=== PATIENT | male | born 1970 | race Caucasian/White ===

== ENCOUNTER 2019-07-19 12:02 | Outpatient (CLI) | payer OTHER ==
--- NOTE | 2019-07-19 13:28 | ULT ---
US Renal Bilateral STANDARD HISTORY: Irregularly shaped kidney noted on [facility] ultrasound. COMPARISON: None. FINDINGS: Real-time imaging of the right and left kidneys were performed. The right kidney measures 1 1 cm, the left kidney 10.9 cm. There are no signs of cyst, mass or obstruction. The bladder region appears unremarkable. IMPRESSION: Unremarkable renal ultrasound.
--- NOTE | 2019-07-19 13:52 | ULT ---
US Thyroid STANDARD HISTORY: Thyroid nodule COMPARISON: None. FINDINGS: Real-time imaging of the right and left lobes of the thyroid gland were performed. The righ t lobe measures 1.3 x 2.1 x 5 cm. The left lobe measures 1.2 x 1.3 x 4.7 cm. A complex cystic nodule measuring 6 mm in size it is located in the midpole region of the right lobe of the thyroid. No calcifications associated with this. Margins are slightly ill-defined. The lesion is wider than tall. IMPRESSION: TI-RADS category 3 right lobe nodule. Given its small size no further workup is suggested . Recommendation is for follow-up at greater than 1.5 cm.
== END 2019-07-19 12:03 | disposition home or self-care (01) ==
LOC: BICULT 12:02
PROVIDERS: ATTEND Family Medicine
DX: E04.1 Nontoxic single thyroid nodule (principal); N26.9 Renal sclerosis, unspecified
CPT/HCPCS: 76536; 76770

== ENCOUNTER 2019-11-28 07:18 | Outpatient (CLI) | payer OTHER ==
[2019-11-28 10:16] LABS: #Basophils 0.1 thou/uL (0.0-0.2); #Eosinphils 0.2 thou/uL (0.0-0.7); #Lymphocytes 1.5 thou/uL (1.20-3.40); #Monocytes 0.5 thou/uL (0.11-0.59); #Neutrophils 2.8 thou/uL (1.40-6.50); %Basophils 1.2 % (0.0-1.0); %Eosinophils 4.4 % (0.0-10.0); %Lymphocytes 29.7 % (21.0-51.0); %Monocytes 9.7 % (0.0-10.0); %Neutrophils 54.9 % (42.0-75.0); Hemoglobin 14.3 g/dL (14.0-18.0); Mean Corpuscular Hemoglobin 31.8 pg (27.0-31.0); Mean Corpuscular Volume 93.6 fL (78.0-98.0); Mean Platelet Volume 7.6 fL (7.4-10.4); Platelet Count 189 thou/uL (130-400); RBC Distribution Width 11.3 % (11.5-14.5); Red Blood Cell (RBC) Count 4.51 mill/uL (4.70-6.10); White Blood Cell (WBC) Count 5.1 thou/uL (4.8-10.8)
== END 2019-11-28 07:19 | disposition home or self-care (01) ==
LOC: LABBT 07:18
PROVIDERS: ATTEND Orthopaedic Surgery Hand Surgery
DX: Z01.812 Encounter for preprocedural laboratory examination (principal); G56.02 Carpal tunnel syndrome, left upper limb; M65.4 Radial styloid tenosynovitis [de Quervain]; G56.12 Other lesions of median nerve, left upper limb
CPT/HCPCS: 85025

== ENCOUNTER 2019-11-29 06:35 | Day surgery (SDC) | payer OTHER ==
[2019-11-28 08:50] VITALS: BMI 32.8
[2019-11-29] MEDS ORDERED: Midazolam HCl 2 mg/2 ml Vial ONE (08:19)
[2019-11-29] MEDS ORDERED: Fentanyl 100 MCG/2 ML VIAL ONE ×2 (08:19→11:12)
[2019-11-29] MEDS ORDERED: Bupivacaine PF 0.5% 30 ML VIAL ONE (08:22)
[2019-11-29] MEDS ORDERED: Betamet Acet/Betamet Na Ph 30 MG/5 ML VIAL ONE ×2 (08:22→09:08)
[2019-11-29] MEDS ORDERED: Bacitracin Zinc Ointment 30 gm TUBE ONE (08:22)
[2019-11-29] MEDS ORDERED: PROPOFOL 200 MG/20 ML VIAL ONE (10:45)
[2019-11-29] MEDS ORDERED: Ondansetron PF 4 MG/2 ML Vial ONE (10:45)
[2019-11-29] MEDS ORDERED: Ketorolac Tromethamine 30 MG/ML VIAL ONE (10:45)
[2019-11-29] MEDS ORDERED: Dexamethasone 20 MG/5 ML VIAL ONE (10:45)
[2019-11-29] MEDS ORDERED: Lidocaine 1% PF 5 ML VIAL ONE (10:45)
[2019-11-29] MEDS ORDERED: HYDROcodone/Acetaminophen 5/325 mg Tablet ONE (12:02)
--- NOTE | 2019-11-30 14:40 | OP ---
DATE OF PROCEDURE: 11/29/2019 PREOPERATIVE DIAGNOSES: 1. Left medial and lateral epicondylitis. 2. Left pronator syndrome. 3. Left carpal tunnel syndrome. 4. Left de Quervain tenosynovitis. POSTOPERATIVE DIAGNOSES AND FINDINGS: 1. Left de Quervain tenosynovitis: 4 branches of the abductor pollicis longus and extensor pollicis brevis were then tunneled with one branch and very tight retinaculum. 2. Very tight transverse carpal ligament with early hourglass formation and stippling of median nerve throughout 1.5 cm area within the canal. No tenosynovitis. 3. Very tight pronator syndrome, pronator itself, very little tension at the flexor digitorum level, large leash of vessels. PROCEDURES PERFORMED: 1. Left medial epicondyle injection 2 mL Celestone. 2. Left lateral epicondyle injection 2 mL Celestone. 3. Left pronator tunnel release (median nerve at the elbow). 4. Left de Quervain release (first dorsal compartment release). 5. Left carpal tunnel release. INJECTABLES: 10 mL Celestone with 3 within the pronator level median nerve, 2 in each lateral epicondyle, 2 in the median nerve of the wrist and 1 in the first dorsal compartment. DESCRIPTION OF PROCEDURE: After successful general endotracheal anesthesia, limb was prepped and draped. Time-out was done appropriately. The tourniquet was placed high on the arm. We exposed the entire forearm. We outlined a lazy double S incision more ulnar at the proximal antecubital region. We outlined the carpal tunnel incision in line with the ring finger down to the level of the transverse carpal ligament edge and far proximal as 5 mm distal to the volar wrist flexion crease about 2.5 cm total left out to the level of distal Weeks cardinal line. We also had a 1.5 cm zigzag incision over the center of the first dorsal compartment dorsal radial wrist. We then palpated the medial epicondyle, injected 2 mL Celestone just off the epicondyle in the tendon epicondyle junction. We did the same primarily on bone at the lateral epicondyle with 2 mL Celestone. We then gave Marcaine a total of 20 mL divided with 10 in the pronator incision, and 5 each at the carpal tunnel and the first dorsal compartment incisions. We entered the lazy-S incision, identified the branch of antebrachial cutaneous nerve and spared them going deep to this, identified the superficial radial nerve and its venous comminuted vessels and then just ulnar to this, saw the superficial pronator. We then did a recession in a double Z pattern, released this. We could now supinate the arm slightly better and identified the median nerve proximally, just distal to the was released. We then identified fascial bands, which were tight enough to be lifted up with a right angle and released these until we got to the pronator deep and released the the branch of the anterior interosseous nerve. The small fascia was released and then a small amount of the flexor digitorum, but it did not seem to be compressing the nerve at this time. We had to use 4 clips to release the leash of vessels, which was on top of the nerve just before its bifurcation to the anterior interosseous nerve branch. We then placed a moist sponge here. We then turned our attention to the carpal tunnel incision. We made a standard carpal tunnel incision and using the outlined incision as listed above. We carried through skin and subcutaneous tissue, identified the transverse carpal ligament just radial to its ulnar edge. We released it here with a [place] blade under direct visualization beginning in the midportion from there distally and then used a combination of [place] blade, tenotomy scissors, visualized the ligament completely from the midportion proximally. There was a marked amount of stippling, but transverse carpal ligament was very thick and tight. There was no tenosynovitis. We placed Celestone here. We then entered the 1.5 cm incision at the first dorsal compartment here, carried through skin and subcutaneous tissue, identified a very large superficial radial nerve branch, protected it. We then released the fibro-osseous tunnel, and was able to completely visualize the inside of the tunnel that was extensor pollicis brevis compartment, which was released and abductor pollicis longus had 4 sleeves. We placed Celestone here. We released the tourniquet, obtained hemostasis, especially proximally. We then closed the carpal tunnel and the first dorsal compartment incision with only interrupted 4-0 nylon mattress pattern. We used a running 3-0 Monocryl to close the dermal level deep at the pronator incision and then interrupted 4-0 nylon in interrupted mattress pattern to close the epidermis at the pronator site. Bacitracin, Adaptic, 4x4s, and Kerlix, placed on both incisions and an Fredrick wrap 4 inch for the proximal portion and 3 for the wrist portion were applied. The patient left the operating room without evidence of anesthetic or operative complication. Job ID: [id number]
== END 2019-11-29 12:40 | disposition home or self-care (01) ==
LOC: SDC 06:35 → EEVIPCON 08:30 → SDC 12:40
PROVIDERS: ATTEND Orthopaedic Surgery Hand Surgery
PROC: 01N50ZZ Release Median Nerve, Open Approach (ICD-10-PCS; principal; 2019-11-29)
PROC: 0LN60ZZ Release Left Lower Arm and Wrist Tendon, Open Approach (ICD-10-PCS; principal; 2019-11-29)
PROC: 3E0U3NZ Introduction of Analgesics, Hypnotics, Sedatives into Joints, Percutaneous Approach (ICD-10-PCS; principal; 2019-11-29)
DX: G56.02 Carpal tunnel syndrome, left upper limb (principal); G56.12 Other lesions of median nerve, left upper limb; M65.4 Radial styloid tenosynovitis [de Quervain]; M77.12 Lateral epicondylitis, left elbow; M77.02 Medial epicondylitis, left elbow; F17.220 Nicotine dependence, chewing tobacco, uncomplicated; E78.5 Hyperlipidemia, unspecified; E66.9 Obesity, unspecified; Z68.32 Body mass index [BMI] 32.0-32.9, adult; Z79.899 Other long term (current) drug therapy
CPT/HCPCS: J0690; J0702; J1100; J1885; J2001; J2250; J2405; J2704; J3010; J3490; S0020

== ENCOUNTER 2020-06-07 12:55 | Outpatient (CLI) | payer OTHER ==
[~2020-06-07 12:55] MED LIST: EPINEPHrine 1 MG/ML AMP ONE; Gadobenate Dimeglumine 529 MG/1 ML (20ML VIAL) ONE; Iopamidol 300 61% 50 ML VIAL FS ONE; Lidocaine 1% PF 10 ML AMP ONE
[2020-06-07] MEDS ORDERED: Iopamidol 300 61% 50 ML VIAL FS ONE (13:28)
[2020-06-07] MEDS ORDERED: Lidocaine 1% PF 10 ML AMP ONE (13:28)
[2020-06-07] MEDS ORDERED: EPINEPHrine 1 MG/ML AMP ONE (13:28)
[2020-06-07] MEDS ORDERED: Gadobenate Dimeglumine 529 MG/1 ML (20ML VIAL) ONE (13:28)
--- NOTE | 2020-06-07 15:58 | RAD ---
EXAM: Right shoulder arthrogram PROVIDED CLINICAL HISTORY: Right shoulder pain. COMPARISON: None TECHNIQUE: The procedure including the risks and complications were explained to the patient, and informed conse nt was obtained. Patient was placed on the fluoroscopy table in the supine position. The right shoulder was placed in external rotation, and an area was marked overlying the upper one third of the glenohumeral joint. The skin and subcutaneous tissues were infiltrated with buffered 1% lidocaine for local anesthesia. A 22-gauge spinal needle was advanced into the right glenohumeral joint. The inner stylette was removed, and a small amount of contrast was injected confirming free flow of contrast away from the t ip of the needle. Approximately 12 mL of a mixture initially containing 2 mL of gadolinium contrast, 8 mL of Isovue-300 contrast, sterile water, lidocaine, a small amount of epinephrine was in stilled into the right glenohumeral joint. The needle was removed, and hemostasis was achieved with direct pressure. The patient tolerated the procedure well and without immediate complication. FINDINGS: Successful right shoulder arthrogram. Additional findings. IMPRESSION: Technically successful right shoulder arthrogram.
--- NOTE | 2020-06-07 16:12 | MRI ---
MR ARTHROGRAM OF THE RIGHT SHOULDER: 06/07/20 INDICATION: History of right rotator cuff tear. COMPARISON: Right shoulder arthrogram dated 06/07/20. FINDINGS: There is a full thickness tear involving the anterior, superior and posterior superior glenoid labrum without evidence of tear extension to the biceps anchor complex. Biceps tendon is located. The rota tor cuff is intact. Glenohumeral articular surface is normal appearing. Anterior inferior glenohumera l labral ligamentous complex is intact. There is mild AC joint osteoarthrosis. No muscular atrophy is evident. There is a type II acromion. No os acromiale is evident. There is mild tendinosis of the loja praspinatus. IMPRESSION: 1. Long segment SLAP tear involving the anterior, superior and posterior superior glenoid labrum without overt evidence of extension to the biceps anchor complex. 2. Mild supraspinatus tendinosis. 3. Mild AC joint osteoarthrosis. 4. No evidence for a full thickness rotator cuff tear. POS: BH
== END 2020-06-07 12:56 | disposition home or self-care (01) ==
LOC: RAD 12:55
PROVIDERS: ATTEND Orthopaedic Surgery
DX: M75.101 Unspecified rotator cuff tear or rupture of right shoulder, not specified as traumatic (principal); S43.431A Superior glenoid labrum lesion of right shoulder, initial encounter; M19.011 Primary osteoarthritis, right shoulder; M75.91 Shoulder lesion, unspecified, right shoulder
CPT/HCPCS: 23350; A9577; J0171; J2001; Q9967

== ENCOUNTER 2021-01-29 07:30 | Outpatient (CLI) | payer BC | END 2021-01-29 07:31 | disposition home or self-care (01) | LOC: SCSMRI 07:30 | PROVIDERS: ATTEND Orthopaedic Surgery | DX: M77.02 Medial epicondylitis, left elbow (principal); M70.22 Olecranon bursitis, left elbow ==

== ENCOUNTER 2021-03-11 15:48 | Outpatient (CLI) | payer BC ==
[2021-03-11 17:54] LABS: #Eosinphils 0.2 10x3/uL (0.0-0.5); #Monocytes 0.5 10x3/uL (0.0-1.1); %Basophils 0.5 % (0.0-2.0); %Eosinophils 2.4 % (0.0-6.0); %Lymphocytes 25.9 % (18.0-47.0); %Monocytes 8.2 % (0.0-10.0); %Neutrophils 62.5 % (40.0-75.0); Hemoglobin 13.5 g/dL (13.5-17.5); Mean Corpuscular HGB CONC 34.1 g/dL (32.0-36.0); Mean Corpuscular Hemoglobin 31.5 pg (27.0-33.0); Mean Corpuscular Volume 92.5 fl (81.2-95.1); Mean Platelet Volume 9.8 fl (7.4-10.4); Platelet Count 201 10x3/uL (150-450); Red Blood Cell (RBC) Count 4.28 10x6/uL (4.32-5.72); White Blood Cell (WBC) Count 6.4 10x3/uL (3.5-10.5)
[2021-03-12 17:01] LABS: SARS-CoV-2 PCR by NAA Not Detected (NotDetected)
== END 2021-03-11 15:49 | disposition home or self-care (01) ==
LOC: LABBT 15:48
PROVIDERS: ATTEND Orthopaedic Surgery
DX: Z01.812 Encounter for preprocedural laboratory examination (principal); M77.02 Medial epicondylitis, left elbow; M70.22 Olecranon bursitis, left elbow; Z20.822 Contact with and (suspected) exposure to COVID-19
CPT/HCPCS: 85025; U0003; U0005

== ENCOUNTER 2021-03-14 06:09 | Day surgery (SDC) | payer BC ==
[2021-03-12 14:20] VITALS: BMI 32.8
[2021-03-14] MEDS ORDERED: Bupivacaine PF 0.5% 30 ML VIAL ONE (06:59)
[2021-03-14] MEDS ORDERED: EPINEPHrine 1 MG/ML AMP ONE (06:59)
[2021-03-14] MEDS ORDERED: Midazolam HCl 2 mg/2 ml Vial ONE (07:00)
[2021-03-14] MEDS ORDERED: Fentanyl 100 MCG/2 ML VIAL ONE (07:00)
[2021-03-14] MEDS ORDERED: PROPOFOL 200 MG/20 ML VIAL ONE (07:05)
[2021-03-14] MEDS ORDERED: Ketorolac Tromethamine 30 MG/ML VIAL ONE (07:05)
[2021-03-14] MEDS ORDERED: Lidocaine 1% PF 5 ML VIAL ONE (07:05)
[2021-03-14] MEDS ORDERED: Dexamethasone 20 MG/5 ML VIAL ONE (07:05)
== END 2021-03-14 10:15 | disposition home or self-care (01) ==
LOC: SDC 06:09
PROVIDERS: ATTEND Orthopaedic Surgery
PROC: 01N40ZZ Release Ulnar Nerve, Open Approach (ICD-10-PCS; principal; 2021-03-14)
DX: M70.22 Olecranon bursitis, left elbow (principal); M77.02 Medial epicondylitis, left elbow; F17.220 Nicotine dependence, chewing tobacco, uncomplicated; E78.5 Hyperlipidemia, unspecified; Z79.899 Other long term (current) drug therapy; Z88.8 Allergy status to other drugs, medicaments and biological substances; Z91.013 Allergy to seafood
CPT/HCPCS: J0171; J0690; J1100; J1885; J2250; J2704; J3010; S0020

== ENCOUNTER 2023-09-15 11:56 | Outpatient (CLI) | payer BC | END 2023-09-15 11:57 | disposition home or self-care (01) | LOC: BICRAD 11:56 | PROVIDERS: ATTEND Nurse Practitioner Family | DX: M54.42 Lumbago with sciatica, left side (principal); M47.816 Spondylosis without myelopathy or radiculopathy, lumbar region; M47.817 Spondylosis without myelopathy or radiculopathy, lumbosacral region; M48.07 Spinal stenosis, lumbosacral region | CPT/HCPCS: 72110 ==

== ENCOUNTER 2024-08-18 07:54 | Outpatient (CLI) | payer BC ==
[2024-08-18 09:02] LABS: #Basophils Less than 0.03 10x3/uL (0.0-0.2); %Basophils 0.4 % (0.0-1.0); %Eosinophils 2.4 % (0.0-10.0); %Lymphocytes 32.1 % (21.0-51.0); %Monocytes 9.1 % (0.0-10.0); %Neutrophils 55.4 % (42.0-75.0); Hematocrit 41.6 % (42.0-52.0); Mean Corpuscular HGB CONC 33.7 g/dL (32.0-36.0); Mean Corpuscular Hemoglobin 31.6 pg (27.0-31.0); Mean Corpuscular Volume 93.9 fL (78.0-98.0); Mean Platelet Volume 9.1 fL (7.4-10.4); Platelet Count 210 10x3/uL (130-400); Red Blood Cell (RBC) Count 4.43 mill/uL (4.70-6.10)
== END 2024-08-18 07:55 | disposition home or self-care (01) ==
LOC: LABBT 07:54
PROVIDERS: ATTEND Orthopaedic Surgery Hand Surgery
DX: Z01.818 Encounter for other preprocedural examination (principal); M72.0 Palmar fascial fibromatosis [Dupuytren]
CPT/HCPCS: 85025; 93005; 93010

== ENCOUNTER 2024-08-23 06:43 | Day surgery (SDC) | payer BC ==
[2024-08-18 08:16] VITALS: BMI 33.0
[2024-08-23] MEDS ORDERED: Betamet Acet/Betamet Na Ph 30 MG/5 ML VIAL ONE (06:49)
[2024-08-23] MEDS ORDERED: Bacitracin Zinc Ointment 30 gm TUBE ONE (06:49)
[2024-08-23] MEDS ORDERED: Bupivacaine PF 0.5% 30 ML VIAL ONE (06:50)
[2024-08-23] MEDS ORDERED: fentaNYL PF 100 MCG/2 ML SYRINGE ONE (07:13)
[2024-08-23] MEDS ORDERED: Midazolam HCl 2 mg/2 ml Vial ONE (07:13)
[2024-08-23] MEDS ORDERED: PROPOFOL 20 ML ONE (07:13)
[2024-08-23] MEDS ORDERED: Rocuronium Bromide 10 MG/ML (10ML VIAL) ONE (07:14)
[2024-08-23] MEDS ORDERED: Lidocaine 1% PF 5 ML VIAL ONE (07:14)
[2024-08-23] MEDS ORDERED: Dexamethasone 4 mg/ml Vial ONE (07:14)
[2024-08-23] MEDS ORDERED: SUGAMMADEX SODIUM 200 MG/2 ML VIAL ONE (07:14)
[2024-08-23] MEDS ORDERED: Ondansetron PF 4 MG/2 ML Vial ONE (07:14)
[2024-08-23] MEDS ORDERED: CEFAZOLIN 2 GM VIAL ONE (07:25)
[2024-08-23] MEDS ORDERED: SUCCINYLCHOLINE/SOD CL,ISO/PF 200 MG/10 ML SYRINGE FS ONE (07:45)
[2024-08-23] MEDS ORDERED: PHENYLEPHRINE-NS 100 MCG/ML 10 ML SYRINGE ONE (08:48)
== END 2024-08-23 10:49 | disposition home or self-care (01) ==
LOC: SDC 06:43
PROVIDERS: ATTEND Orthopaedic Surgery Hand Surgery
PROC: 0JNK0ZZ Release Left Hand Subcutaneous Tissue and Fascia, Open Approach (ICD-10-PCS; principal; 2024-08-23)
DX: M72.0 Palmar fascial fibromatosis [Dupuytren] (principal); E78.5 Hyperlipidemia, unspecified; F17.220 Nicotine dependence, chewing tobacco, uncomplicated; Z91.041 Radiographic dye allergy status; Z91.013 Allergy to seafood; Z79.899 Other long term (current) drug therapy
CPT/HCPCS: 88304; A6223; J0665; J0702; J1100; J2250; J2405; J2704